=== PATIENT | female | born 1985 | race Caucasian/White ===

== ENCOUNTER 2020-07-24 08:13 | Day surgery (SDC) | payer MEDICAID ==
[2020-07-17 10:50] LABS: BASOPHILS % (AUTO) 0.5 % (0-1); EOSINOPHILS # (AUTO) 0.1 X10'3 (0-0.9); EOSINOPHILS % (AUTO) 2.1 % (0-6); LYMPHOCYTES # (AUTO) 1.8 X10'3 (1.1-4.8); LYMPHOCYTES % (AUTO) 27.2 % (21-51); MEAN CORPUSCULAR HEMOGLOBIN 29.6 PG (27.0-31.0); MEAN CORPUSCULAR HGB CONC 33.8 g/dL (33.0-36.5); MEAN CORPUSCULAR VOLUME 87.7 FL (78-98); MEAN PLATELET VOLUME 9.6 FL (7.4-10.4); MONOCYTES # (AUTO) 0.5 X10'3 (0-0.9); MONOCYTES % (AUTO) 8.1 % (2-12); NEUTROPHILS % (AUTO) 62.1 % (42-75); PRE OP HEMATOCRIT 39.6 % (35.0-45.0); PRE OP HEMOGLOBIN 13.4 g/dL (12.0-16.0); PRE OP PLATELET COUNT 214 X10'3 (140-440); RED BLOOD COUNT 4.51 X10'6 (4.20-5.60); RED CELL DISTRIBUTION WIDTH 13.3 % (11.5-14.5)
[2020-07-17 11:03] LABS: ALBUMIN 3.9 G/DL (3.4-5.0); ALBUMIN/GLOBULIN RATIO 1.1 (1.1-1.5); ALKALINE PHOSPHATASE 46 IU/L (46-116); BLOOD UREA NITROGEN 16 MG/DL (7-18); BUN/CREATININE RATIO 21.6 (6.6-38.0); CALCIUM 9.1 MG/DL (8.5-10.1); CHLORIDE 104 MMOL/L (99-107); CREATININE 0.74 MG/DL (0.40-0.90); PRE OP ALT 32 U/L (30-65); PRE OP ANION GAP 9 (8-16); PRE OP AST 22 U/L (10-37); PRE OP BILIRUB, TOTAL 0.3 MG/DL (0.0-1.0); PRE OP GLUCOSE 93 MG/DL (70-104); PRE OP SODIUM 139 MMOL/L (135-145); TOTAL CARBON DIOXIDE 26.3 MMOL/L (24-32); TOTAL PROTEIN 7.6 G/DL (6.4-8.2); eGFR 90 ML/MIN
[2020-07-24] VITALS (7 sets, daily range): BP systolic 124–152; BP diastolic 75–94
[~2020-07-24] VITALS: Ht 162.6 cm; Wt 95.0 kg
[~2020-07-24 08:13] MED LIST: LORA-657 PO; ceFAZolin 2gm in dextrose, iso 50 ML IV ONE; famotidine 20mg tablet PO ONE; ringers solution, lacted 1,000 ML IV SCH
[2020-07-24] MEDS ORDERED: fentaNYL/PF 50MCG/1 ML 2ML syringe ONE (10:21)
[2020-07-24] MEDS ORDERED: midazolam 2 mg/2 ml injection ONE ×2 (10:21→11:11)
[2020-07-24] MEDS ORDERED: LIDOcaine 0.5% (5mg/ml) 50ml vial ONE (10:47)
[2020-07-24] MEDS: BUPIVAcaine/PF 2.5mg/ml (0.25%) 10ml vial ONE ×2 (11:09→11:44)
[2020-07-24] MEDS ORDERED: propofol inj 20 ML IV ONE (11:24)
--- NOTE | 2020-07-24 11:40 | NUR ---
Received from OR via [facility] [employer], accompanied by Anesthesiologist ISABEL and report given by Anesthesiologist. PATIENT IS LAYING COMFORTABLY ON GURNEY, DENIES PAIN, PIV ON LEFT HAND 22G, LR RUNNING, BANDAGE ON RIGHT WRIST WITH NO DRAINAGE OR BLEEDING, PATIENT IS ABLE TO MOVE HER RIGHT FINGERS SLIGHTLY, STATES "FINGERS ARE NUMB", VS STABLE. WILL MONITOR. Addendum: 07/24/20 at 1157 by Haley Rm RN Amended: Links added.
--- NOTE | 2020-07-24 12:28 | NUR ---
PATIENT VERBALIZED UNDERSTANDING, OPPORTUNITY TO ASK QUESTIONS GIVEN AND PATIENT COMFORTABLE WITH DC. IV TAKEN OUT WITHOUT COMPLICATION. PATIENT HAS MET ALL DC CRITERIA FOR DC HOME. I HAVE REVIEWED D/C INSTRUCTIONS WITH PATIENT. PIV D/C'D FROM LEFT HAND 2-TAKEN OUT VIA WHEELCHAIR WHERE PATIENT WAS TAKEN HOME WITH ALL BELONGINGS. FAMILY GAVE PATIENT TRANSPORT HOME.
--- NOTE | 2020-07-24 12:28 | NUR ---
PATIENT VERBALIZED UNDERSTANDING, OPPORTUNITY TO ASK QUESTIONS GIVEN AND PATIENT COMFORTABLE WITH DC. IV AT RIGHT HAND 20G TAKEN OUT WITHOUT COMPLICATION, IV CATHETER INTACT. PATIENT HAS MET ALL DC CRITERIA FOR DC HOME. I HAVE REVIEWED D/C INSTRUCTIONS WITH PATIENT. PATIENT DENIES PAIN AND NAUSEA AT DISCHARGE, TAKEN OUT VIA WHEELCHAIR WHERE PATIENT WAS TAKEN HOME WITH ALL BELONGINGS, ONLY SOCKS. FAMILY GAVE PATIENT TRANSPORT HOME. Addendum: 07/24/20 at 1244 by Haley Rm RN Amended: Links added.
== END 2020-07-24 12:28 | disposition home or self-care (01) ==
LOC: PAS 08:13
PROVIDERS: ATTEND Orthopaedic Surgery Hand Surgery
DX: M67.431 Ganglion, right wrist (principal); Z88.8 Allergy status to other drugs, medicaments and biological substances; Z88.2 Allergy status to sulfonamides; Z88.0 Allergy status to penicillin; E66.9 Obesity, unspecified; Z68.41 Body mass index [BMI] 40.0-44.9, adult; Z79.899 Other long term (current) drug therapy; Z98.51 Tubal ligation status; Z87.891 Personal history of nicotine dependence; Z72.89 Other problems related to lifestyle; Z20.822 Contact with and (suspected) exposure to COVID-19
CPT/HCPCS: 25111; 36415; 80053; 82948; 85025; 87426; 87635; 93005; A6222; J2001; J2250; J2704; J3010; J3490; A4215; A4615; A4618; J7120